=== PATIENT | male | born 1965 | race Caucasian/White ===

== ENCOUNTER 2016-09-28 11:34 | Emergency (ER) | payer OTHER ==
[2016-09-28 11:38] VITALS: TEMP 98.5; BMI 29.8
[2016-09-28 13:38] LABS: BASOPHIL 0.4 % (0-2.0); EOSINOPHIL 0.4 % (0-4.5); MCH 30.7 pg (25.7-33.7); MCHC 34.4 g/dl (32.0-35.9); MEAN CELL VOLUME 89.2 fl (80-96); NEUTROPHILS 80.1 % (42.8-82.8); PLATELET COUNT 246 K/MM3 (134-434); RDW 13.3 % (11.9-15.9)
[2016-09-28 13:50] LABS: ALBUMIN 4.1 g/dl (3.4-5.0); ANION GAP 11 (8-16); BILIRUBIN,TOTAL 0.4 mg/dL (0.2-1.0); CALCIUM 9.4 mg/dL (8.5-10.1); CO2 26 mmol/L (21-32); COCKROFT - GAULT 112.66; CREATININE 0.9 mg/dL (0.7-1.3); GLUCOSE,RANDOM 98 mg/dL (74-106); SGOT/AST 14 U/L (15-37); SGPT/ALT 28 U/L (12-78); TOT PROT 7.7 g/dl (6.4-8.2)
[2016-09-28 13:53] LABS: ALK PHOS 111 U/L (45-117)
[2016-09-28 13:58] LABS: TROPONIN I < 0.02 ng/ml (0.00-0.05)
[2016-09-28] MEDS ORDERED: ACETAMINOPHEN 325 MG TABLET (FP) PO ONE (14:05)
--- NOTE | 2016-09-28 14:05 | PDOC ---
History of Present Illness - General History Source: Patient - History of Present Illness Timing/Duration: reports: getting worse, intermittent Abdominal Pain Onset Location: reports: RLQ <Yoruba,Joshua - Last Filed: 09/28/16 17:38> <Neeraj Garza - Last Filed: 09/28/16 18:57> - General Chief Complaint: Pain Stated Complaint: RIGHT SIDE PAIN Time Seen by Provider: 09/28/16 13:05 Past History - Past Medical History Anemia: No Asthma: No Cancer: No Cardiac Disorders: No CVA: No COPD: No CHF: No Dementia: No Diabetes: No GI Disorders: Yes (DIVERTICULITIS) Disorders: No HTN: Yes Hypercholesterolemia: Yes Liver Disease: No Psychiatric Problems: Yes (ANXIETY) Seizures: No Thyroid Disease: No - Surgical History Abdominal Surgery: Yes (COLECTOMY/ insicional hernia) Appendectomy: No Cholecystectomy: No Orthopedic Surgery: No - Immunization History Immunization Up to Date: Yes - Psycho/Social/Smoking Cessation Hx Anxiety: Yes Suicidal Ideation: No Smoking History: Never smoked Have you smoked in the past 12 months: No If you are a former smoker, when did you quit?: 12 yrs Information on smoking cessation initiated: No Hx Alcohol Use: No Drug/Substance Use Hx: No Substance Use Type: None Hx Substance Use Treatment: No <Joshua Mancini - Last Filed: 09/28/16 17:38> <Neeraj Garza - Last Filed: 09/28/16 18:57> - Past Medical History Allergies/Adverse Reactions: Allergies Allergy/AdvReac Type Severity Reaction Status Date / Time hydromorphone HCl Allergy Severe Vomiting Verified 09/28/16 11:38 [From Dilaudid] Penicillins Allergy Severe Verified 09/28/16 11:38 aspirin AdvReac Severe Verified 09/28/16 11:38 Home Medications: Ambulatory Orders Amlodipine Besylate [Norvasc -] 5 mg PO HS 05/28/14 Atorvastatin Ca [Lipitor] 20 mg PO HS 05/28/14 Losartan Potassium 50 mg PO HS 05/28/14 Alprazolam [Xanax] 2 mg PO BID 09/28/16 Lamotrigine [Lamictal Xr] 250 mg PO DAILY 09/28/16 Review of Systems - Review of Systems Constitutional: No: Chills, Fever ABD/GI: Yes: Nausea. No: Constipated, Diarrhea, Vomiting : No: Dysuria, Flank Pain, Hematuria <Odette ManciniAkankshaKarol - Last Filed: 09/28/16 17:38> *Physical Exam - Vital Signs Last Vital Signs Temp Pulse Resp BP Pulse Ox 98.5 F 78 20 146/89 98 09/28/16 11:34 09/28/16 11:34 09/28/16 11:34 09/28/16 11:34 09/28/16 11:34 - Physical Exam General Appearance: Yes: Appropriately Dressed. No: Apparent Distress HEENT: positive: Normal Voice Neck: positive: Supple Respiratory/Chest: negative: Respiratory Distress Gastrointestinal/Abdominal: positive: Tender (poorly localized ttp to RLQ), Soft Male Genitalia: positive: normal genitalia. negative: discharge, testicular tenderness, testicular mass, epididymus tender Musculoskeletal: negative: CVA Tenderness Extremity: positive: Normal Inspection Integumentary: positive: Dry, Warm Neurologic: positive: Fully Oriented, Alert, Normal Mood/Affect <Odette ManciniAkankshaKarol - Last Filed: 09/28/16 17:38> - Vital Signs Last Vital Signs Temp Pulse Resp BP Pulse Ox 98.5 F 67 20 142/82 97 09/28/16 11:34 09/28/16 15:39 09/28/16 15:39 09/28/16 15:39 09/28/16 15:39 <Neeraj Garza - Last Filed: 09/28/16 18:57> Heart Score/ECG Review - ECG Impressions Comment:: 09/28/16 18:56 Twelve-lead EKG was performed and reviewed by me. There is normal sinus rhythm with a normal rate. Rate of 60 The axis is normal. The intervals are normal. There is normal R wave progression There are no ST or T wave abnormalities. Impression: Normal twelve-lead EKG <Neeraj Garza - Last Filed: 09/28/16 18:57> ED Treatment Course - LABORATORY CBC & Chemistry Diagram: 09/28/16 13:20 09/28/16 13:20 - ADDITIONAL ORDERS Additional order review: Laboratory Results 09/28/16 13:20 Sodium 140 Potassium 4.4 Chloride 103 Carbon Dioxide 26 Anion Gap 11 BUN 9 Creatinine 0.9 Creat Clearance w eGFR > 60 Random Glucose 98 D Calcium 9.4 Total Bilirubin 0.4 D AST 14 L ALT 28 Alkaline Phosphatase 111 Creatine Kinase 113 Troponin I < 0.02 Total Protein 7.7 Albumin 4.1 Lipase 140 09/28/16 13:20 RBC 4.86 MCV 89.2 MCHC 34.4 RDW 13.3 MPV 9.0 Neutrophils % 80.1 Lymphocytes % 14.8 Monocytes % 4.3 Eosinophils % 0.4 Basophils % 0.4 - RADIOLOGY Radiology Studies Ordered: Category Date Time Status ABDOMEN & PELVIS CT WITH CONTR [CT] Stat CT Scan 09/28/16 13:48 Ordered <Joshua Mancini - Last Filed: 09/28/16 17:38> - LABORATORY CBC & Chemistry Diagram: 09/28/16 13:20 09/28/16 13:20 - ADDITIONAL ORDERS Additional order review: Laboratory Results 09/28/16 09/28/16 15:30 13:20 Sodium 140 Potassium 4.4 Chloride 103 Carbon Dioxide 26 Anion Gap 11 BUN 9 Creatinine 0.9 Creat Clearance w eGFR > 60 Random Glucose 98 D Calcium 9.4 Total Bilirubin 0.4 D AST 14 L ALT 28 Alkaline Phosphatase 111 Creatine Kinase 113 Troponin I < 0.02 Total Protein 7.7 Albumin 4.1 Lipase 140 Urine Color Yellow Urine Appearance Clear Urine pH 5.0 Ur Specific [place] 1.020 Urine Protein Negative Urine Glucose (UA) Negative Urine Ketones Negative Urine Blood 1+ H Urine Nitrite Negative Urine Bilirubin Negative Urine Urobilinogen Negative Ur Leukocyte Esterase Negative Urine RBC 2 Urine WBC <1 Urine Mucus Rare 09/28/16 13:20 RBC 4.86 MCV 89.2 MCHC 34.4 RDW 13.3 MPV 9.0 Neutrophils % 80.1 Lymphocytes % 14.8 Monocytes % 4.3 Eosinophils % 0.4 Basophils % 0.4 - Medications Given in the ED: ED Medications Discontinued Medications Generic Name Dose Route Start Last Admin Trade Name Freq PRN Reason Stop Dose Admin Acetaminophen 650 mg 09/28/16 14:05 09/28/16 14:45 Tylenol - PO 09/28/16 14:06 650 mg ONCE ONE Administration <Neeraj Garza - Last Filed: 09/28/16 18:57> Medical Decision Making - Medical Decision Making 09/28/16 14:00 51 yo M, h/o recurrent diverticulitis, status post surgical repair in 2014, status post repair for ventral hernia, here with right lower quadrant pain 3 days, getting worse. Also complaining of nausea, no vomiting change in bowel movements, fever, chills or acute symptoms. Patient unsure if current pain similar to his diverticulitis See exam R/o recurrent diverticulitis -pain control -labs -CT 09/28/16 17:38 CT negative for acute ab/nl. Labs unremarkable. Pt asx at this time. Stable for discharge w/ PMD and GI f/u 09/28/16 17:43 <Joshua Mancini - Last Filed: 09/28/16 17:38> - Medical Decision Making 09/28/16 18:56 The patient was seen and evaluated in conjunction with GOGO Mancini under my direct supervision, ancillary studies were reviewed. I agree with the plan as outlined by GOGO Mancini . <Neeraj Garza - Last Filed: 09/28/16 18:57> *DC/Admit/Observation/Transfer <Joshua Mancini - Last Filed: 09/28/16 17:38> <Neeraj Garza - Last Filed: 09/28/16 18:57> Diagnosis at time of Disposition: Abdominal pain Qualifiers: Abdominal location: right lower quadrant Qualified Code(s): R10.31 - Right lower quadrant pain - Discharge Dispostion Disposition: HOME Condition at time of disposition: Improved - Referrals Referrals: Jordan Denton MD [Primary Care Provider] - - Patient Instructions Additional Instructions: Your labs and CAT scan was negative today. If pain continues, please follow-up with your PMD
[2016-09-28] MEDS ORDERED: ACETAMINOPHEN 325 MG TABLET (FP) ONE (14:38)
[2016-09-28 15:40] VITALS: BP 142/82; PULSE 67
[2016-09-28 15:49] LABS: URINE APPEARANCE CLEAR; URINE BILIRUBIN NEGATIVE (NEGATIVE); URINE COLOR YELLOW; URINE GLUCOSE (UA) NEGATIVE (NEGATIVE); URINE KETONE NEGATIVE (NEGATIVE); URINE LEUK ESTERASE NEGATIVE (NEGATIVE); URINE NITRITE NEGATIVE (NEGATIVE); URINE PROTEIN NEGATIVE (NEGATIVE); URINE UROBILINOGEN NEGATIVE E.U./dl (0.2-1.0)
[2016-09-28 15:51] LABS: URINE BLOOD 1+ (NEGATIVE)
[2016-09-28 15:56] LABS: URINE MUCUS RARE; URINE RBC 2 /hpf (0-3); URINE WBC <1 /hpf (3-5)
--- NOTE | 2016-09-29 16:29 | EKG ---
Test Reason : Blood Pressure : / mmHG Vent. Rate : 060 BPM Atrial Rate : 060 BPM P-R Int : 112 ms QRS Dur : 090 ms QT Int : 364 ms P-R-T Axes : 030 035 034 degrees QTc Int : 364 ms NORMAL SINUS RHYTHM NORMAL ECG WHEN COMPARED WITH ECG OF 01-FEB-2016 09:14, NO SIGNIFICANT CHANGE WAS FOUND Confirmed by YOEL MONTANEZ MD ([id number]) on 09/29/2016 4:29:33 PM Referred By: Confirmed By:YOEL MONTANEZ MD
== END 2016-09-28 17:51 | disposition home or self-care (01) ==
LOC: JER 11:34
DX: J06.9 Acute upper respiratory infection, unspecified (principal); I10 Essential (primary) hypertension
CPT/HCPCS: 36415; 74177-TC; 80053; 81003; 81015; 82550; 83690; 84484; 85025; 93005; 93010; 99283-25; Q9967

== ENCOUNTER 2016-10-02 06:58 | Emergency (ER) | payer OTHER ==
[2016-10-02 07:10] VITALS: BMI 28.2
--- NOTE | 2016-10-02 08:40 | PDOC ---
History of Present Illness - General Chief Complaint: Pain Stated Complaint: NOT FEELING WELL/NO FEELING IN FINGERS Time Seen by Provider: 10/02/16 08:35 History Source: Patient Exam Limitations: No Limitations - History of Present Illness Travel History: No Initial Comments: 10/02/16 08:45 This is a 51 yo M with PMH of GERD (last EGD >5 yrs), GI ulcer in youth, diverticulitis (s/p resection 2014), severe anxiety/depression, HTN, HLD, who presents with multiple complaints including worsening epigastric pain since this morning (burning, intermittent, alleviated by PPI, rad to L chest), dizziness and numbness in toes and fingers x 2 d. He was in the ED at [facility] on Mon, at which time he was w/u for RLQ abd pain with CT abd/pelvis, which was negative for intra-abdominal path. Since mon, he tapered off his Xanax, in hope what cessation will improve his heart burn symptoms (last dose Mon). Since then he has been feeling more anxious, experienced worsening epigastric pain and manifested the other above complaints. He denies sob, palpitations, chest pain, LOC, n/v, diarrhea, constipation, melena, hematochezia, dysuria. Last BM was yesterday (normal). Last colonoscopy was [address] Shepard. He has not had a prior cardiac w/o. PCP Dr Ferreira GI: Dr Shepard in the past 10/02/16 08:54 10/02/16 08:55 Timing/Duration: reports: getting worse Quality: reports: moderate, burning Abdominal Pain Onset Location: reports: epigastric Pain Radiation: reports: chest (L chest) Treatment Prior to Arrive: improves with: antacids. worse with: analgesics Aggravating Factors: improves with: Emotional upset Alleviating Factors: improves with: Change in Position (sitting upright, alleviated by PPI) Past History - Travel Traveled outside of the country in the last 30 days: No Close contact w/someone who was outside of country & ill: No - Past Medical History Allergies/Adverse Reactions: Allergies Allergy/AdvReac Type Severity Reaction Status Date / Time hydromorphone HCl Allergy Severe Vomiting Verified 10/02/16 07:10 [From Dilaudid] Penicillins Allergy Severe Verified 10/02/16 07:10 aspirin AdvReac Severe Verified 10/02/16 07:10 Home Medications: Ambulatory Orders Amlodipine Besylate [Norvasc -] 5 mg PO HS 05/28/14 Atorvastatin Ca [Lipitor] 20 mg PO HS 05/28/14 Alprazolam [Xanax] 0.5 mg PO BID 09/28/16 Lansoprazole [Prevacid] 30 mg PO HS 10/02/16 Omeprazole 40 mg PO BID 10/02/16 Sucralfate [Carafate -] 1 gm PO DAILY #7 tablet 10/02/16 Terbinafine HCl [Lamisil] 250 mg PO DAILY 10/02/16 Zolpidem Tartrate [Ambien] 5 mg PO HS PRN 10/02/16 Anemia: No Asthma: No Cancer: No Cardiac Disorders: No Hx Myocardial Infarction: No CVA: No COPD: No CHF: No Dementia: No Diabetes: No Dialysis: No GI Disorders: Yes (DIVERTICULITIS, PEPTIC ULCER) Disorders: No HTN: Yes Hypercholesterolemia: Yes Kidney Stones: No Liver Disease: No Psychiatric Problems: Yes (ANXIETY, DEPRESION ) Seizures: No Thyroid Disease: No Lung CA: No - Surgical History Abdominal Surgery: Yes (COLECTOMY/ insicional hernia) Appendectomy: No Cholecystectomy: No Gastric Stapling: No GI Surgery: Yes (RESECTION DUE TO DIVERTICULITIS, INCISIONAL HERNIA REPAIR) Lung Surgery: No Neurologic Surgery: No Orthopedic Surgery: No - Family Disease History Family Disease History: Diabetes: Mother, Heart Disease: Mother, CA: Mother, Other: Father (ETOH ABUSE ) - Immunization History Immunization Up to Date: Yes - Psycho/Social/Smoking Cessation Hx Anxiety: Yes Suicidal Ideation: No Smoking History: Former smoker (60 PACK YR HISTORY) Have you smoked in the past 12 months: No If you are a former smoker, when did you quit?: 12 yrs Hx Alcohol Use: No Drug/Substance Use Hx: Yes Substance Use Type: Marijuana (OCCASIONAL) Hx Substance Use Treatment: No Patient Lives Alone: No Lives with/in: spouse/SO Abd/GI Specific PMHX - Complaint Specific PMHX Colitis: No Diverticulitis: Yes Gall Bladder Disease: No GERD: Yes Hepatitis: No Irritable Bowel Synd (IBS): No Pancreatitis: No GI Ulcer Disease: Yes Review of Systems - Review of Systems Able to Perform ROS?: Yes Is the patient limited Togolese proficient: No Constitutional: Yes: Diaphoresis. No: Fever, Loss of Appetite, Malaise, Night Sweats, Unintentional Wgt. Loss HEENTM: No: Throat Pain, Difficulty Swallowing Respiratory: No: Cough, Orthopnea, Shortness of Breath, SOB with Exertion, SOB at Rest, Stridor, Wheezing, Hemoptysis Cardiac (ROS): No: Chest Pain, Edema, Irregular Heart Rate, Lightheadedness, Palpitations, Syncope, Chest Tightness ABD/GI: Yes: See HPI, Indigestion. No: Abdominal Distended, Abd. Pain w/ defecation, Blood Streaked Bowels, Constipated, Diarrhea, Nausea, Poor Fluid Intake, Rectal Bleeding, Vomiting, Abdominal cramping, Tarry Stools : No: Dysuria Musculoskeletal: No: Back Pain Neurological: Yes: See HPI, Numbness Psychiatric: Yes: Anxiety Hematologic/Lymphatic: No: Anemia *Physical Exam - Vital Signs Last Vital Signs Temp Pulse Resp BP Pulse Ox 98.0 F 101 H 24 139/81 100 10/02/16 07:06 10/02/16 07:06 10/02/16 07:06 10/02/16 07:06 10/02/16 07:06 - Physical Exam General Appearance: Yes: Nourished. No: Apparent Distress HEENT: positive: EOMI, NASIM. negative: Scleral Icterus (L) Neck: positive: Trachea midline, Normal Thyroid, Supple. negative: Tender, Lymphadenopathy (L), Thyromegaly Respiratory/Chest: positive: Lungs Clear, Normal Breath Sounds. negative: Chest Tender, Respiratory Distress, Crackles, Rales, Rhonchi, Wheezing Cardiovascular: positive: Regular Rhythm, Regular Rate, S1, S2. negative: JVD, Tachycardia Vascular Pulses: Femoral (R): 2+, Femoral (L): 2+, Dorsalis-Pedis (R): 0 (HAD PRIOR NEGATIVE ANKLE/BRACHIAL INDEX ), Doralis-Pedis (L): 0 (HAD PRIOR NEGATIVE ANKLE/BRACHIAL INDEX ) Gastrointestinal/Abdominal: positive: Normal Bowel Sounds, Tender (MILD EPIGASTRIC TENDERNESS ), Soft. negative: Organomegaly, Pulsatile Mass, Distended, Guarding, Rebound, Mass, Hepatomegaly, Spleenomegaly Musculoskeletal: negative: CVA Tenderness Extremity: negative: Pedal Edema, Swelling, Calf Tenderness Integumentary: positive: Normal Color, Moist. 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 negative: Normal Mood/Affect (ANXIOUS ), Numbness, Sensory Deficit Heart Score/ECG Review - History History: Slightly suspicious - Electrocardiogram EKG: Normal - Age Age: 45-65 - Risk Factors Risk Factors Heart Score: Yes Hx Hypercholesterolemia, Yes Hx Hypertension, Yes Smoking History, Yes Positive family hx of cardiac disease Based on the list above the patient has:: >/=3 risk factors or Hx atherosclerotic disease - Troponin Troponin: </= normal limit - Score Heart Score - Total: 3 - ECG Intrepretation Rhythm: Regular Rhythm - [place]: Normal - P and [place] Prominent R with upright T in V1 (true posterior [place]): No Delta Wave(s) Present: No WPW: No - QRS Poor R Wave Progression: No Q Wave Present: No - ST and T Early Repolarization: No Non Specific ST-T Wave changes: No Flattened T Waves: No Prolonged Q-T Interval: No - ECG Impressions Normal ECG: Yes Non-specific ST Elevation: No Ischemic Changes: No Bradycardia: No Torsades emile Pointes: No WPW: No ED Treatment Course - LABORATORY CBC & Chemistry Diagram: 10/02/16 08:00 10/02/16 08:00 - RADIOLOGY Chest X-Ray Result: No Infiltrates Comments: no intrathoracic pathology - Medications Given in the ED: 10/02/16 13:34 protonic 40 IV Mylanta 10/02/16 13:35 Progress Note - Progress Note Progress Note: Patient was given mylanta and IV protonix, with relief of symptoms. EKG unremarkable, trop negative. MIld leukocytosis likely associated with GI ulcer. Patient stable for d/c home with GI f/u for endoscopy and h pylori testing. *DC/Admit/Observation/Transfer Diagnosis at time of Disposition: GERD (gastroesophageal reflux disease), Anxiety, Abdominal pain - Discharge Dispostion Disposition: HOME Condition at time of disposition: Good Admit: No - Prescriptions Prescriptions: Sucralfate [Carafate -] 1 gm PO DAILY #7 tablet - Referrals Referrals: Jordan Denton MD [Primary Care Provider] - - Patient Instructions Additional Instructions: Your upper abdominal pain is most likely due to heart burn "GERD" and possibly related to a gastric ulcer. Any cardiac causes were ruled out. You are safe to return home. Please take omeprazole daily. We prescribed you 7 days of daily Carafate, a medication that can alleviate your heartburn. Please follow up with a gastrointerologist as soon as possible for an upper endoscopy and other testing "h pylori bacteria test". Your anxiety might be contributing to worsening symptoms. Discuss best therapy for you with your primary doctor. See primary doctor leon to check blood work (your ER blood work had some signs of inflammation, possibly consistent with ulcer) Return to ER if symptoms worsen
[2016-10-02] MEDS ORDERED: PANTOPRAZOLE SODIUM 40 MG in SODIUM CHLORIDE 100 ML IVPB ONE (08:42)
[2016-10-02] MEDS ORDERED: PANTOPRAZOLE SODIUM 100 ML IVPB ONE (08:56)
[2016-10-02 09:01] LABS: BASOPHIL 0.5 % (0-2.0); EOSINOPHIL 0.4 % (0-4.5); MCH 30.5 pg (25.7-33.7); MCHC 34.1 g/dl (32.0-35.9); MEAN CELL VOLUME 89.6 fl (80-96); MEAN PLT VOLUME 9.7 fl (7.5-11.1); PLATELET COUNT 265 K/MM3 (134-434); RDW 13.4 % (11.9-15.9); WHITE BLOOD COUNT 12.4 K/mm3 (4.0-10.0)
[2016-10-02 09:26] LABS: ALBUMIN 4.7 g/dl (3.4-5.0); ANION GAP 15 (8-16); BILIRUBIN,TOTAL 0.8 mg/dL (0.2-1.0); CO2 20 mmol/L (21-32); COCKROFT - GAULT 87.19; CREATININE 1.1 mg/dL (0.7-1.3); GLUCOSE,RANDOM 104 mg/dL (74-106); SGOT/AST 22 U/L (15-37); SGPT/ALT 33 U/L (12-78); TOT PROT 8.5 g/dl (6.4-8.2)
[2016-10-02 09:29] LABS: ALK PHOS 122 U/L (45-117); TROPONIN I < 0.02 ng/ml (0.00-0.05)
[2016-10-02] MEDS ORDERED: MAG HYDROX/AL HYDROX/SIMETH 30 ML UNIT-DOSE CUP PO ONE (10:04)
--- NOTE | 2016-10-02 10:10 | PDOC ---
Attending Attestation - Resident Resident Name: Caitlyn Talbot - ED Attending Attestation I have performed the following: I have examined & evaluated the patient, The case was reviewed & discussed with the resident, I agree w/resident's findings & plan, Exceptions are as noted - HPI HPI: 10/02/16 10:07 Agree with the resident's HPI as documented in the electronic medical record. - Physicial Exam PE: 10/02/16 10:07 Agree with the resident's physical examination as documented in the electronic medical record. - Medical Decision Making 10/02/16 10:07 51-year-old male with history of hypertension, high cholesterol, GERD presents to the emergency Department with complaints of epigastric pain radiating to his chest since January but has worsened over the past week or so. He is been seen by [facility] in the past but has not followed up. He has taken omeprazole without significant relief. He has no vomiting, hematemesis, melena. Differential diagnosis includes but is not limited to: GERD, peptic ulcer disease, gastritis, esophagitis, pancreatitis, gallbladder disease, atypical presentation of ACS, electrolyte abnormality, toxic/metabolic derangement. Plan: 1. EKG 2. Labs 3. Protonix 4. Chest x-ray 5. Observe and reevaluate
[2016-10-02] MEDS ORDERED: MAG HYDROX/AL HYDROX/SIMETH 30 ML UNIT-DOSE CUP ONE (11:04)
[2016-10-02 13:17] VITALS: TEMP 98.8
[2016-10-02 13:59] VITALS: BP 149/84; PULSE 77
--- NOTE | 2016-10-02 16:25 | EKG ---
Test Reason : Blood Pressure : / mmHG Vent. Rate : 088 BPM Atrial Rate : 088 BPM P-R Int : 118 ms QRS Dur : 070 ms QT Int : 332 ms P-R-T Axes : 042 037 021 degrees QTc Int : 401 ms POOR DATA QUALITY, INTERPRETATION MAY BE ADVERSELY AFFECTED NORMAL SINUS RHYTHM SEPTAL INFARCT , AGE UNDETERMINED ABNORMAL ECG WHEN COMPARED WITH ECG OF 28-SEP-2016 13:28, NO SIGNIFICANT CHANGE WAS FOUND Confirmed by HANK WILSON MD ([id number]) on 10/02/2016 4:25:17 PM Referred By: Confirmed By:HANK WILSON MD
== END 2016-10-02 13:57 | disposition home or self-care (01) ==
LOC: JER 06:58
PROC: 3E033GC Introduction of Other Therapeutic Substance into Peripheral Vein, Percutaneous Approach (ICD-10-PCS; principal; 2016-10-02)
DX: K21.9 Gastro-esophageal reflux disease without esophagitis (principal); F41.8 Other specified anxiety disorders; I10 Essential (primary) hypertension; E78.00 Pure hypercholesterolemia, unspecified; Z87.19 Personal history of other diseases of the digestive system
CPT/HCPCS: 36415; 71010-TC; 71020-TC; 80053; 83690; 84484; 85025; 93005; 93010; 96365; 99282-25

== ENCOUNTER 2018-10-22 09:18 | Emergency (ER) | payer OTHER ==
[2018-10-22 09:24] VITALS: BP 152/94; TEMP 98.3; BMI 39.1
[2018-10-22] MEDS ORDERED: ACETAMINOPHEN 1000 MG/100 ML VIAL (NON FORMULARY) IVPB ONE (09:37)
[2018-10-22] MEDS ORDERED: SODIUM CHLORIDE 1,000 ML IV STA (09:37)
--- NOTE | 2018-10-22 09:40 | PDOC ---
History of Present Illness - General Chief Complaint: Pain Stated Complaint: ABD PAIN Time Seen by Provider: 10/22/18 09:32 History Source: Patient - History of Present Illness Timing/Duration: reports: constant, getting worse Abdominal Pain Onset Location: reports: LLQ Past History - Past Medical History Allergies/Adverse Reactions: Allergies Allergy/AdvReac Type Severity Reaction Status Date / Time hydromorphone HCl Allergy Severe Vomiting Verified 10/22/18 09:20 [From Dilaudid] Penicillins Allergy Severe Verified 10/22/18 09:20 aspirin AdvReac Severe Verified 10/22/18 09:20 Home Medications: Ambulatory Orders Amlodipine Besylate [Norvasc -] 5 mg PO HS 05/28/14 Atorvastatin Ca [Lipitor] 20 mg PO HS 05/28/14 Alprazolam [Xanax] 0.5 mg PO BID 09/28/16 Lansoprazole [Prevacid] 30 mg PO HS 10/02/16 Omeprazole 40 mg PO BID 10/02/16 Sucralfate [Carafate -] 1 gm PO DAILY #7 tablet 10/02/16 Terbinafine HCl [Lamisil] 250 mg PO DAILY 10/02/16 Zolpidem Tartrate [Ambien] 5 mg PO HS PRN 10/02/16 Acetaminophen [Tylenol -] 1,000 mg PO Q6H #100 tablet 10/22/18 Anemia: No Asthma: No Cancer: No Cardiac Disorders: No CVA: No COPD: No CHF: No Dementia: No Diabetes: No Dialysis: No GI Disorders: Yes (DIVERTICULITIS, PEPTIC ULCER) Disorders: No HTN: Yes Hypercholesterolemia: Yes Kidney Stones: No Liver Disease: No Psychiatric Problems: Yes (ANXIETY, DEPRESION ) Seizures: No Thyroid Disease: No Lung CA: No - Surgical History Abdominal Surgery: Yes (COLECTOMY/ insicional hernia) Appendectomy: No Cholecystectomy: No Gastric Stapling: No GI Surgery: Yes (RESECTION DUE TO DIVERTICULITIS, INCISIONAL HERNIA REPAIR) Lung Surgery: No Neurologic Surgery: No Orthopedic Surgery: No - Family Disease History Family Disease History: Diabetes: Mother, Heart Disease: Mother, CA: Mother, Other: Father (ETOH ABUSE ) - Immunization History Immunization Up to Date: Yes - Suicide/Smoking/Psychosocial Hx Smoking History: Never smoked Have you smoked in the past 12 months: No If you are a former smoker, when did you quit?: 12 yrs Hx Alcohol Use: No Drug/Substance Use Hx: No Substance Use Type: Marijuana (OCCASIONAL) Hx Substance Use Treatment: No Abd/GI Specific PMHX - Complaint Specific PMHX Colitis: No Diverticulitis: Yes Gall Bladder Disease: No GERD: Yes Hepatitis: No Irritable Bowel Synd (IBS): No Pancreatitis: No GI Ulcer Disease: Yes Review of Systems - Review of Systems Constitutional: No: Chills, Fever ABD/GI: Yes: Nausea, Abdominal cramping. No: Vomiting : No: Dysuria, Flank Pain, Hematuria, Testicular Swelling, Testicular Pain *Physical Exam - Vital Signs Last Vital Signs Temp Pulse Resp BP Pulse Ox 98.3 F 112 H 18 152/94 97 10/22/18 09:20 10/22/18 09:20 10/22/18 09:20 10/22/18 09:20 10/22/18 09:20 - Physical Exam General Appearance: Yes: Appropriately Dressed, Mild Distress HEENT: positive: Normal Voice Neck: positive: Supple Respiratory/Chest: negative: Respiratory Distress Gastrointestinal/Abdominal: positive: Normal Bowel Sounds, Tender (Poorly localized ttp to LLQ , pt also ttp to L ronel without obvious hernia, testes with no swelling/ttp), Soft. negative: Distended, Guarding, Rebound Musculoskeletal: negative: CVA Tenderness Integumentary: positive: Dry, Warm Neurologic: positive: Fully Oriented, Alert, Normal Mood/Affect ED Treatment Course - LABORATORY CBC & Chemistry Diagram: 10/22/18 10:00 10/22/18 10:00 Medical Decision Making - Medical Decision Making 10/22/18 09:33 53 yo male, history of recurrent diverticulitis, s/p surgery for same in 2015, here with worsening LLQ pain 3 days. States stool alternating from formed to liquid. + nausea, no vomiting, BRBPR, melena, f/c. States sxs feels like his previous diverticulitis See exam R/o recurrent diverticulitis -pain control -zofran -IVF -labs -CT 10/22/18 12:46 CT negative for signs of diverticulitis. There are several hernias seen including small umbilical hernia and bilateral inguinal hernias seen containing fat. Patient now reports that he's also had a ventral hernia repair in the past , following his diverticulitis surgery. Exam demonstrates no obvious hernia at this time, but pt was tender to L groin on initial exam. Labs unremarkable. Pt reports sig improvement in pain w/ toradol. Rpt HR 86. Will discuss dispo w/ ED attg 10/22/18 13:[address] Reynaga, agrees that patient can be discharged to follow-up with his surgeon, Dr. Landaverde, this week. Strict return precautions given to patient 10/22/18 13:24 *DC/Admit/Observation/Transfer Diagnosis at time of Disposition: Abdominal pain Qualifiers: Abdominal location: unspecified location Qualified Code(s): R10.9 - Unspecified abdominal pain Inguinal hernia Qualifiers: Obstruction and gangrene presence: without obstruction or gangrene Laterality: bilateral Recurrence: not specified as recurrent Qualified Code(s): K40.20 - Bilateral inguinal hernia, without obstruction or gangrene, not specified as recurrent - Discharge Dispostion Disposition: HOME Condition at time of disposition: Improved - Prescriptions Prescriptions: Acetaminophen [Tylenol -] 1,000 mg PO Q6H #100 tablet - Referrals Referrals: Jordan Denton MD [Primary Care Provider] - - Patient Instructions Printed Discharge Instructions: Abdominal Hernia Additional Instructions: Her CAT scan did not show recurrent diverticulitis, but did show 2 small inguinal hernias containing fat. Given no obstruction at this time, you were discharged to follow-up with Dr. Landaverde of surgery this week. If pain persists, get worse and you develop constipation, vomiting or fever, you need to return to the ER immediately - Post Discharge Activity Forms/Work/School Notes: Back to Work
[2018-10-22] MEDS ORDERED: ACETAMINOPHEN INJECTION 100 ML IVPB ONE (09:56)
[2018-10-22] MEDS ORDERED: KETOROLAC TROMETHAMINE 30 MG/1 ML VIAL IVPUSH ONE (10:02)
[2018-10-22] MEDS ORDERED: KETOROLAC TROMETHAMINE 30 MG/1 ML VIAL ONE (10:12)
[2018-10-22 10:25] LABS: BASO % 0.4 % (0-2.0); EOS % 0.7 % (0-4.5); HEMATOCRIT 44.2 % (35.4-49); LYMPH % 9.1 % (8-40); MCH 29.3 pg (25.7-33.7); MCHC 33.9 g/dl (32.0-35.9); MEAN CELL VOLUME 86.3 fl (80-96); MEAN PLT VOLUME 8.8 fl (7.5-11.1); MONO % 7.1 % (3.8-10.2); NEUT % 82.7 % (42.8-82.8); PLATELET COUNT 326 K/MM3 (134-434); RBC 5.12 M/mm3 (4.00-5.60); WHITE BLOOD COUNT 11.8 K/mm3 (4.0-10.0)
[2018-10-22 10:48] LABS: BILIRUBIN,TOTAL 0.3 mg/dL (0.2-1); BLOOD UREA NITROGEN 11.9 mg/dL (7-18); CALCIUM 9.2 mg/dL (8.5-10.1); CREATININE 1.1 mg/dL (0.55-1.3); POTASSIUM 4.9 mmol/L (3.5-5.1); TOT PROT 7.8 g/dl (6.4-8.2)
[2018-10-22 10:51] LABS: INR 0.92 (0.83-1.09); PROTHROMBIN TIME (PATIENT) 10.9 SEC (9.7-13.0)
[2018-10-22 11:19] LABS: EPI CELLS 0.5 /HPF (0-5/HPF); HYALINE CASTS 3 /lpf (0-8); PH,URINE 5.5 (5.0-8.0); URINE APPEARANCE CLEAR; URINE BACTERIA 1.5 /hpf (NEGATIVE); URINE BILIRUBIN NEGATIVE (NEGATIVE); URINE COLOR YELLOW; URINE GLUCOSE (UA) TRACE (NEGATIVE); URINE KETONE TRACE (NEGATIVE); URINE LEUK ESTERASE NEGATIVE (NEGATIVE); URINE NITRITE NEGATIVE (NEGATIVE); URINE PROTEIN 1+ (NEGATIVE); URINE RBC 2 /hpf (0-4); URINE UROBILINOGEN 0.2 mg/dL (0.2-1.0); URINE WBC 1 /hpf (0-5)
[2018-10-22 13:40] VITALS: PULSE 86
== END 2018-10-22 13:42 | disposition home or self-care (01) ==
LOC: JER 09:18
PROC: 3E0337Z Introduction of Electrolytic and Water Balance Substance into Peripheral Vein, Percutaneous Approach (ICD-10-PCS; principal; 2018-10-22)
PROC: 3E0333Z Introduction of Anti-inflammatory into Peripheral Vein, Percutaneous Approach (ICD-10-PCS; 2018-10-22)
DX: K40.20 Bilateral inguinal hernia, without obstruction or gangrene, not specified as recurrent (principal); I10 Essential (primary) hypertension; E78.5 Hyperlipidemia, unspecified; F41.9 Anxiety disorder, unspecified; F32.9 Major depressive disorder, single episode, unspecified; Z87.19 Personal history of other diseases of the digestive system
CPT/HCPCS: 36415; 74177-TC; 80053; 81003; 83690; 85025; 85610; 86850; 86900; 86901; 96361; 96374; 99281-25; J7030